=== PATIENT | male | born 1990 | race Caucasian/White ===

== ENCOUNTER 2017-07-08 12:00 | Emergency (ER) | payer BC ==
[2017-07-08] MEDS ORDERED: Lidocaine 1% 20 ML MDV INJECT ONE (12:11)
[2017-07-08] MEDS ORDERED: Diphtheria,Pertussis(Acell),Tetanus Vaccine 0.5 ML Syringe IM ONE (12:11)
[2017-07-08] MEDS ORDERED: Bacitracin Oint 1 GM U/D Packet TOP ONE (12:11)
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
--- NOTE | 2017-07-08 13:08 | CR ---
EXAMINATION: Right hand HISTORY: Pain COMPARISON: None TECHNIQUE: 2 views FINDINGS/IMPRESSION: There is no acute osseous abnormality, dislocation, or fracture. Bone mineraliza tion and joint spaces are normal. No focal soft tissue swelling.
== END 2017-07-08 13:30 | disposition home or self-care (01) ==
LOC: MW.ED 12:00
DX: S61.411A Laceration without foreign body of right hand, initial encounter (principal); Z23 Encounter for immunization; W23.1XXA Caught, crushed, jammed, or pinched between stationary objects, initial encounter
CPT/HCPCS: 73120-26-RT; 73120-RT; 90471; 90715; 99283-25

== ENCOUNTER 2017-07-17 19:22 | Emergency (ER) | payer BC | END 2017-07-17 19:40 | disposition home or self-care (01) | LOC: MW.ED 19:22 | DX: Z48.01 Encounter for change or removal of surgical wound dressing (principal) ==

== ENCOUNTER 2019-08-16 01:56 | Emergency (ER) | payer SELFPAY ==
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
[2019-08-16] MEDS ORDERED: Octyl 2-Cyanoacrylate 1 APPLIC TUBE TOP ONE (03:39)
== END 2019-08-16 03:51 | disposition home or self-care (01) ==
LOC: MW.ED 01:56
DX: S02.2XXA Fracture of nasal bones, initial encounter for closed fracture (principal); S01.21XA Laceration without foreign body of nose, initial encounter; Y04.0XXA Assault by unarmed brawl or fight, initial encounter
CPT/HCPCS: 12011; 70486; 99284; A9270; 99283

== ENCOUNTER 2024-05-19 13:41 | Day surgery (SDC) | payer BC ==
[2024-05-19] MEDS: Sodium Chloride 0.9% 1,000 ML IV ONE (14:19)
[2024-05-19] MEDS: Ondansetron 4 MG/2 ML SDV IVPUSH ONE (14:19)
[2024-05-19] MEDS: HYDROmorphone 0.5 MG/0.5 ML Syringe IVPUSH ONE (14:28)
[2024-05-19 14:30] LABS: BASOPHILS ABSOLUTE AUTO 0.05 K/uL (0.00-0.20); BASOPHILS PERCENT AUTO 0.3 % (0.0-1.0); EOSINOPHILS ABSOLUTE AUTO 0.02 K/uL (0.00-0.45); EOSINOPHILS PERCENT AUTO 0.1 % (0.0-6.0); HEMOGLOBIN 17.7 g/dL (14.0-18.0); IMMATURE GRAN ABSOLUTE AUTO 0.09 K/uL (0.00-0.05); IMMATURE GRAN PERCENT AUTO 0.5 % (0.0-0.4); LYMPHOCYTES ABSOLUTE AUTO 1.83 K/uL (1.00-4.80); LYMPHOCYTES PERCENT AUTO 10.3 % (24.0-44.0); MEAN CORPUSCULAR HEMOGLOBIN 30.2 pg (28.0-32.0); MEAN CORPUSCULAR HGB CONC 34.7 g/dL (32.0-36.0); MEAN PLATELET VOLUME 10.4 fL (9.4-12.4); MONOCYTES ABSOLUTE AUTO 1.72 K/uL (0.00-0.80); MONOCYTES PERCENT AUTO 9.6 % (0.0-8.0); NEUTROPHILS ABSOLUTE AUTO 14.12 K/uL (1.80-7.70); NEUTROPHILS PERCENT AUTO 79.2 % (41.0-71.0); PLATELET COUNT,PLT 241 K/uL (150-400); RED BLOOD CELL COUNT 5.86 M/uL (4.52-5.90); WHITE BLOOD CELL COUNT,WBC 17.83 K/uL (3.9-11.3)
[2024-05-19 14:54] LABS: A/G RATIO 1.3 (0.9-1.6); ALBUMIN 4.4 g/dL (3.4-5.0); BILIRUBIN TOTAL 1.7 mg/dL (0.2-1.0); CALCIUM 9.5 mg/dL (8.5-10.1); CARBON DIOXIDE,CO2 26.2 mmol/L (21.0-32.0); CREATININE 1.3 mg/dL (0.8-1.3); EST CRCL DRUG DOSING (CG) 68.33 mL/min; POTASSIUM,K 4.3 mmol/L (3.5-5.1); PROTEIN TOTAL,TP 7.8 g/dL (6.4-8.2)
[2024-05-19] MEDS: Iopamidol 755 MG/ML 500 ML Multipack Bottle IVPUSH STA (14:56)
[2024-05-19] MEDS: Piperacillin/Tazobactam 4.5 GM in Sodium Chloride 0.9% 100 ML IV ONE (15:11)
[2024-05-19 15:24] LABS: APPEARANCE,URINE CLEAR; BILIRUBIN,URINE NEGATIVE (NEGATIVE); COLOR,URINE YELLOW; GLUCOSE,URINE NEGATIVE (NEGATIVE); KETONES,URINE NEGATIVE (NEGATIVE); LEUKOCYTE ESTERASE,URINE NEGATIVE (NEGATIVE); NITRITE,URINE NEGATIVE (NEGATIVE); OCCULT BLOOD,URINE NEGATIVE (NEGATIVE); PROTEIN,URINE NEGATIVE (NEGATIVE); UROBILINOGEN,URINE 0.2 EU/dL (<2.0)
[2024-05-19] MEDS: HYDROmorphone 0.5 MG/0.5 ML Syringe IVPUSH PRN (16:18)
[2024-05-19] MEDS: Sodium Chloride 0.9% 1,000 ML IV SCH (16:18)
[2024-05-19] MEDS ORDERED: Sodium Chloride 0.9% 20 ML ONE (16:29)
[2024-05-19] MEDS ORDERED: dexmedeTOMIDine HCl 200 MCG/2 ML SDV ONE (16:29)
[2024-05-19] MEDS ORDERED: fentaNYL 100 MCG/2 ML SDV ONE (16:29)
[2024-05-19] MEDS ORDERED: Propofol 200 MG/20 ML SDV ONE (16:29)
[2024-05-19] MEDS ORDERED: Rocuronium Bromide 50 MG/5 ML Syringe ONE (16:32)
[2024-05-19] MEDS ORDERED: Bupivacaine 0.25% 30 ML SDV ONE (16:38)
[2024-05-19] MEDS ORDERED: Bupivacaine 0.5% 30 ML SDV ONE (16:41)
[2024-05-19] MEDS ORDERED: Dexamethasone 4 MG/ML 5 ML MDV ONE (17:23)
[2024-05-19] MEDS ORDERED: Ondansetron 4 MG/2 ML SDV ONE (17:23)
[2024-05-19] MEDS ORDERED: Magnesium Sulfate (4.06 MEQ/ML) 5 GM/10 ML SDV ONE ×2 (17:46)
[2024-05-19] MEDS ORDERED: Ketorolac 30 MG/ML SDV ONE (17:48)
[2024-05-19] MEDS ORDERED: Sugammadex Sodium 200 MG/2 ML VIAL IV ONE (17:48)
[2024-05-19] MEDS ORDERED: Ondansetron 4 MG/2 ML SDV IVPUSH PRN (18:45)
[2024-05-19] MEDS: Ketorolac 30 MG/ML SDV IVPUSH SCH (20:07)
[2024-05-19] MEDS: Piperacillin/Tazobactam 4.5 GM in Sodium Chloride 0.9% 100 ML IV SCH (23:59)
[2024-05-20] MEDS: Lactated Ringers 1,000 ML IV SCH (04:51)
[2024-05-20] MEDS: HYDROmorphone 1 MG/ML Syringe IVPUSH PRN (04:52)
[2024-05-20] MEDS: Acetaminophen/oxyCODONE 325-5 MG Tab PO PRN (08:05)
[2024-05-20] MEDS: Polyethylene Glycol 3350 Powder 17 GM Packet PO SCH (08:06)
== END 2024-05-20 09:34 | disposition home or self-care (01) ==
LOC: MW.ED 13:41 → MW.SDS 16:17 → MW.MS 19:47 → MW.SDS 05-20 09:34
PROVIDERS: ATTEND Surgery
DX: K35.33 Acute appendicitis with perforation, localized peritonitis, and gangrene, with abscess (principal); F17.290 Nicotine dependence, other tobacco product, uncomplicated
CPT/HCPCS: 36415; 44970; 64488; 74177; 76870; 80053; 81003; 83605; 83690; 85025; 93976; 96361; 96365; 96375; 96376; 99285; A9270; J0131; J0665; J1100; J1171; J1885; J2405; J2543; J2704; J3010; J3475; J7030; J7120; Q9967; 00840; J3490